=== PATIENT | male | born 1975 | race Caucasian/White ===

== ENCOUNTER 2016-12-18 01:05 | Emergency (ER) | payer MEDICAID ==
[2016-12-18 02:45] VITALS: BP 131/72
== END 2016-12-18 02:45 | disposition home or self-care (01) ==
LOC: ED 01:05
DX: A08.4 Viral intestinal infection, unspecified (principal); G44.209 Tension-type headache, unspecified, not intractable; G43.909 Migraine, unspecified, not intractable, without status migrainosus
CPT/HCPCS: J1885; Q0162